=== PATIENT | female | born 2000 | race Caucasian/White ===

== ENCOUNTER 2021-01-17 11:08 | Emergency (ER) | payer OTHER ==
[~2021-01-17] VITALS: Ht 157.5 cm; Wt 45.4 kg
[2021-01-17] MEDS ORDERED: HYDR25SU33 RC (11:38)
--- NOTE | 2021-01-17 11:47 | NUR ---
Patient discharged to home in stable condition. Written and verbal after care instructions given. Patient verbalizes understanding of instructions. Stressed follow up or return to ER for worsening s/s.
== END 2021-01-17 11:48 | disposition home or self-care (01) ==
LOC: ER 11:08
DX: K64.8 Other hemorrhoids (principal); R03.0 Elevated blood-pressure reading, without diagnosis of hypertension
CPT/HCPCS: A4663